=== PATIENT | female | born 1975 | race Caucasian/White ===

== ENCOUNTER 2016-09-17 13:46 | Emergency (ER) | payer OTHER ==
[~2016-09-17] VITALS: Ht 180.3 cm; Wt 110.0 kg
[~2016-09-17 13:46] MED LIST: ASPI81TA16 PO; FER325 PO; INSU100I14 SC; LANT3I SC; METF1000 PO; ROSU40TA35 PO
[2016-09-17 13:48] VITALS: Ht 180.3 cm; Wt 110.0 kg
[2016-09-17] MEDS ORDERED: SOD CHLORIDE 0.9% 1,000 ML IV STA (15:06)
[2016-09-17] MEDS ORDERED: ONDANSETRON 4 MG INJ IV STA (15:06)
[2016-09-17 15:23] LABS: BASOPHILS % 0.3 % (0.0-2.0); EOSINOPHILS % 0.5 % (0.0-7.0); HEMATOCRIT 31.4 % (37.0-47.0); HEMOGLOBIN 9.3 g/dl (12.0-16.0); LYMPHOCYTES # 2.3 10^3/ul (0.8-2.9); LYMPHOCYTES % 26.8 % (15.0-51.0); MEAN CORPUSCULAR HEMOGLOBIN 19.4 pg (29.0-33.0); MEAN CORPUSCULAR HGB CONC 29.6 g/dl (32.0-37.0); MEAN CORPUSCULAR VOLUME 65.6 fl (82.0-101.0); MONOCYTE # 0.4 10^3/ul (0.3-0.9); MONOCYTES % 4.3 % (0.0-11.0); NEUTROPHIL # 5.9 10^3/ul (1.6-7.5); NEUTROPHILS % 67.8 % (39.0-77.0); PLATELET COUNT 390 10^3/UL (140-415); RED BLOOD COUNT 4.79 10^6/ul (4.20-5.40); RED CELL DISTRIBUTION WIDTH 19.6 % (11.5-14.5); WHITE BLOOD COUNT 8.7 10^3/ul (4.8-10.8)
[2016-09-17 15:35] LABS: ADD UMIC YES; UR ASCORBIC ACID NEGATIVE (NEGATIVE); UR BACTERIA FEW /HPF (NONE SEEN); UR BILIRUBIN (Dip) NEGATIVE (NEGATIVE); UR BLOOD (Dip) NEGATIVE (NEGATIVE); UR CLARITY SLIGHTLY CLOUDY (CLEAR); UR GLUCOSE (Dip) 3+ mg/dL (NEGATIVE); UR KETONES (Dip) TRACE mg/dL (NEGATIVE); UR LEUKOCYTE ESTERASE (Dip) 2+ Leu/ul (NEGATIVE); UR NITRITE (Dip) NEGATIVE (NEGATIVE); UR RBC 9 /HPF (0-5); UR SPECIFIC GRAVITY (Dip) 1.037 (1.003-1.030); UR SQUAMOUS EPITHELIAL CELL FEW /HPF (FEW); UR TOTAL PROTEIN (Dip) NEGATIVE (NEGATIVE); UR UROBILINOGEN (Dip) NEGATIVE (NEGATIVE)
[2016-09-17 15:40] LABS: ALBUMIN 4.4 g/dl (3.3-4.9); ALBUMIN/GLOBULIN RATIO 1.29; BILIRUBIN,INDIRECT 0.1 mg/dl (0-1.1); BILIRUBIN,TOTAL 0.1 mg/dl (0.2-1.3); CALCIUM 9.7 mg/dl (8.4-10.2); CREATININE 0.48 mg/dl (0.44-1.00); POTASSIUM 4.1 mmol/L (3.5-5.1); TOTAL PROTEIN 7.8 g/dl (6.1-8.1)
[2016-09-17] MEDS ORDERED: CEFTRIAXONE 1 GM/50 ML (PMX) 50 ML IVPB STA (15:47)
[2016-09-17] MEDS ORDERED: CEPH-443 PO (16:07)
[2016-09-17] MEDS ORDERED: ONDA4TAB14 PO (16:09)
[2016-09-17] MEDS ORDERED: PHEN-538 PO (16:20)
[2016-09-17] MEDS ORDERED: FER325 PO (16:20)
[2016-09-17] MEDS ORDERED: DOCU-144 PO (16:20)
[2016-09-17 16:47] VITALS: BP 141/85; PULSE 90; RESP 16; TEMP 98.3
--- NOTE | 2016-09-17 16:55 | ERD ---
ER Documentation Chief Complaint Date/Time DATE: 09/17/16 TIME: 16:47 Chief Complaint 8/10 abd pain with N/V/D 2 days HPI This is a 41-year-old with history of diabetes type 2 on insulin presents to the emergency department complaining of 8 out of 10 abdominal pain, locating it throughout all quadrants, with associated nausea, nonbilious nonbloody vomiting and nonbloody diarrhea for the past 2 days. Patient denies any fever. Patient denies taking any medications for this ROS All systems reviewed and are negative except as per history of present illness. Medications Home Meds Active Scripts Docusate Sodium* (Colace*) 100 Mg Capsule, 100 MG PO BID, #30 CAP Prov:RAJESH MUELLER PA-C 09/17/16 Ferrous Sulfate* (Ferrous Sulfate*) 325 Mg Tabec, 325 MG PO DAILY, #30 TAB Prov:RAJESH MUELLER PA-C 09/17/16 Phenazopyridine Hcl* (Pyridium*) 200 Mg Tab, 200 MG PO TID Y for URINARY PAIN, # 15 TAB Prov:RAJESH MUELLER PA-C 09/17/16 Ondansetron (Ondansetron Odt) 4 Mg Tab.rapdis, 4 MG PO Q6H Y for NAUSEA AND/OR VOMITING, #20 TAB Prov:RAJESH MUELLER PA-C 09/17/16 Cephalexin* (Keflex*) 500 Mg Capsule, 500 MG PO TID for 14 Days, CAP Prov:RAJESH MUELLER PA-C 09/17/16 Reported Medications Insulin Lispro (Humalog) 100 U/Ml Insuln.pen, 12 UNITS SC WITH MEALS, EA 07/18/15 Ferrous Sulfate* (Ferrous Sulfate*) 325 Mg Tabec, 325 MG PO BID, TAB 01/03/15 Insulin Glargine* (Lantus*) 100 Unit/Ml Soln, 75 UNIT SC HS, EA 01/03/15 Metformin Hcl* (Metformin Hcl*) 1,000 Mg Tablet, 1000 MG PO BID, TAB 01/03/15 Rosuvastatin Calcium* (Crestor*) 40 Mg Tablet, 40 MG PO HS 10/28/12 Aspirin (LOW DOSE ASPIRIN EC) 81 Mg Tablet.dr, 81 MG PO DAILY 10/28/12 Allergies Allergies: Coded Allergies: morphine (Verified Allergy, Unknown, SOB, 07/18/15) PMhx/Soc History of Surgery: Yes (, AMPLASTER) Anesthesia Reaction: No Hx Neurological Disorder: No Hx Respiratory Disorders: No Hx Cardiac Disorders: Yes (atrial- septo defect 2006, HYPERLIPDEMIA , HTN) Hx Psychiatric Problems: Yes (anxiety) Hx Miscellaneous Medical Probl: No (DM) Hx Alcohol Use: No Hx Substance Use: No Hx Tobacco Use: No Physical Exam Vitals Vital Signs Date Time Temp Pulse Resp B/P Pulse Ox O2 Delivery O2 Flow Rate FiO2 09/17/16 13:48 98.3 91 18 126/76 98 Physical Exam GENERAL: well-developed/well-nourished, in no apparent distress, non-toxic appearing HENT: NC/AT, moist mucous membranes EYES: Conjunctiva normal NECK: Supple, no lymphadenopathy PULM: CTA bilaterally, no rales, rhonchi, or wheezing heard CV: Normal S1S2, RRR, good capillary refill GI: Soft, non-distended, tender to palpation all quadrants Normal bowel sounds, no masses or organomegaly felt on exam No gross peritonitis, no bruits Negative Rovsing, negative Hugo, negative McBurney's point, Negative CVAT BACK: No masses EXT: No clubbing, cyanosis, or edema NEURO: Alert and Orientated SKIN: Intact, normal turgor PSYCH: Normal mood and mentation Result Diagram: 09/17/16 1510 09/17/16 1510 Results 24 hrs Laboratory Tests Test 09/17/16 15:00 09/17/16 15:10 Urine Color YELLOW Urine Clarity SLIGHTLY CLOUDY Urine pH 5.0 Urine Specific [place] 1.037 Urine Ketones TRACEmg/dL Urine Nitrite NEGATIVEmg/dL Urine Bilirubin NEGATIVEmg/dL Urine Urobilinogen NEGATIVEmg/dL Urine Leukocyte Esterase 2+Lorene/ul Urine Microscopic RBC 9/HPF Urine Microscopic WBC 2/HPF Urine Squamous Epithelial Cells FEW/HPF Urine Bacteria FEW/HPF Urine Hemoglobin NEGATIVEmg/dL Urine Glucose 3+mg/dL Urine Total Protein NEGATIVEmg/dl White Blood Count 8.710^3/ul Red Blood Count 4.7910^6/ul Hemoglobin 9.3g/dl Hematocrit 31.4% Mean Corpuscular Volume 65.6fl Mean Corpuscular Hemoglobin 19.4pg Mean Corpuscular Hemoglobin Concent 29.6g/dl Red Cell Distribution Width 19.6% Platelet Count 76381^3/UL Mean Platelet Volume 9.0fl Neutrophils % 67.8% Lymphocytes % 26.8% Monocytes % 4.3% Eosinophils % 0.5% Basophils % 0.3% Nucleated Red Blood Cells % 0.0/100WBC Neutrophils # 5.910^3/ul Lymphocytes # 2.310^3/ul Monocytes # 0.410^3/ul Eosinophils # 0.010^3/ul Basophils # 0.010^3/ul Nucleated Red Blood Cells # 0.010^3/ul Sodium Level 140mmol/L Potassium Level 4.1mmol/L Chloride Level 100mmol/L Carbon Dioxide Level 24mmol/L Anion Gap 20 Blood Urea Nitrogen 13mg/dl Creatinine 0.48mg/dl Glucose Level 216mg/dl Calcium Level 9.7mg/dl Total Bilirubin 0.1mg/dl Direct Bilirubin 0.00mg/dl Indirect Bilirubin 0.1mg/dl Aspartate Amino Transf (AST/SGOT) 22IU/L Alanine Aminotransferase (ALT/SGPT) 26IU/L Alkaline Phosphatase 102IU/L Total Protein 7.8g/dl Albumin 4.4g/dl Globulin 3.40g/dl Albumin/Globulin Ratio 1.29 Lipase 204U/L Current Medications Medications (Trade) Dose Ordered Sig/Génesis Route PRN Reason Start Time Stop Time Status Last Admin Dose Admin Sodium Chloride (NS) 1,000 ml @ 1,000 mls/hr Q1H STAT IV 09/17/16 15:06 09/17/16 16:05 DC 09/17/16 15:23 Ondansetron HCl 8 mg 8 mg ONCE STAT IV 09/17/16 15:06 09/17/16 15:08 DC 09/17/16 15:23 Ceftriaxone Sodium (Rocephin) 50 ml @ 100 mls/hr ONCE STAT IVPB 09/17/16 15:47 09/17/16 16:16 DC 09/17/16 16:00 Procedures/MDM 41-year-old female diabetes type 2 dependent on insulin presents to emergency department complaining of generalized abdominal pain, nausea vomiting diarrhea for the past 2 days. Patient likely has a viral gastritis. She was found to have a urinary tract infection. Patient does not appear septic, she is afebrile and nontoxic appearing she has stable vital signs. Patient is appropriate for a trial of outpatient antibiotics. In the ED, IV access is established. Patient was given 1 L of fluids. She did not have any evidence of leukocytosis. Patient had evidence of microcytic anemia, at this time it is not necessary for transfusion. Her hemoglobin was 9. She is asymptomatic. CMP was unremarkable. Urinalysis showed evidence of hemoglobin and infection. Patient was given 1 g of ceftriaxone. Urine culture was sent out. Prescription for Keflex 500 mg 3 times daily for the next 14 days was provided. There was no suspicion for obstruction, appendicitis, diverticulitis. Patient is stable to be discharged home with strict precautions to return the emergency department for any worsening signs or symptoms. She understands and agrees with this plan Departure Diagnosis: Primary Impression: Nausea vomiting and diarrhea Additional Impressions: Microcytic anemia UTI (urinary tract infection) Urinary tract infection type: site unspecified Hematuria presence: with hematuria Qualified Code: N39.0 - Urinary tract infection with hematuria, site unspecified Condition: Stable Patient Instructions: Understanding Urinary Tract Infections (UTIs), Nausea and Vomiting-Adult, Diet, Vomiting Or Diarrhea [6Yr-Adult] Additional Instructions: FOLLOW UP WITH YOUR PRIMARY CARE PHYSICIAN TOMORROW.Return to this facility if you are not improving as expected. Take all medicines as directed. Return to this facility if you are not improving as expected. RAJESH MUELLER PA-C Sep 17, 2016 16:55
[2016-09-17 17:26] LABS: UR COLOR YELLOW (YELLOW)
== END 2016-09-17 16:49 | disposition home or self-care (01) ==
LOC: FTE 13:46
DX: R11.2 Nausea with vomiting, unspecified (principal); D50.9 Iron deficiency anemia, unspecified; N39.0 Urinary tract infection, site not specified; I10 Essential (primary) hypertension; E11.9 Type 2 diabetes mellitus without complications; R19.7 Diarrhea, unspecified; Z79.82 Long term (current) use of aspirin; Z79.84 Long term (current) use of oral hypoglycemic drugs
CPT/HCPCS: 36415; 80053; 81001; 83690; 85025; 87086; 96374; 96375; J0696; J2405; J7030; Z7502